=== PATIENT | female | born 1960 | race African-American/Black ===

== ENCOUNTER 2017-09-03 10:40 | Emergency (ER) | payer OTHER ==
[~2017-09-03] VITALS: Ht 167.6 cm; Wt 78.6 kg
[~2017-09-03 10:40] MED LIST: ADVIL200 MG PO; ALEVE220 M2 PO; AMOXICILLIN500 MG PO; CALCIUM 500 MG1 EACH PO; CLARITIN10 M3 PO; COMPAZINE10 MG PO; DILAUDID2 MG PO; ENDOCET 5-3251 EACH PO; GABAPENTIN300 MG PO; LETROZOLE2.5 MG PO; LYRICA100 MG PO; LYRICA50 MG PO; NABUMETONE500 MG PO; NAPROSYN500 MG PO; NAPROXEN500 MG PO; NOHOMEMEDS; OXYCODONE-ACET1 EACH PO; PEN-VEE K,VEET500 MG PO; PEPCID20 MG PO; PERCOCET 10/1 TABLET PO; PERCOCET 5/31 TABLET PO; PRILOSEC20 MG PO; TRAUMEEL TP; VITAMIN D31000 UNIT PO; WOUND CARE; ZOFRAN ODT4 MG PO; ZOFRAN4 MG PO; [UNRECOGNIZED DRUG - REMARK]
[2017-09-03] MEDS ORDERED: MOTRIN800 MG PO (14:38)
[2017-09-03 14:52] VITALS: BP 138/81
== END 2017-09-03 14:52 | disposition home or self-care (01) ==
LOC: EME 10:40
DX: S80.01XA Contusion of right knee, initial encounter (principal); S80.11XA Contusion of right lower leg, initial encounter; W01.0XXA Fall on same level from slipping, tripping and stumbling without subsequent striking against object, initial encounter; Y93.01 Activity, walking, marching and hiking; F17.200 Nicotine dependence, unspecified, uncomplicated
CPT/HCPCS: 73564; 73590; 99281; 99284; J1885; J2270